=== PATIENT | male | born 1995 | race Caucasian/White ===

== ENCOUNTER 2022-03-06 11:29 | Emergency (ER) | payer SELFPAY ==
[2022-03-06 11:34] VITALS: BP 158/101; PULSE 93; RESP 18; TEMP 36.6; O2SAT 98
--- NOTE | 2022-03-06 11:34 | ED.EYEPROB ---
HPI - Eye Problem General Chief complaint: Eye Problems Stated complaint: eyes Time Seen by Provider: 03/06/22 11:40 Source: patient and RN notes reviewed Mode of arrival: ambulatory Limitations: no limitations History of Present Illness HPI Narrative: 26 year old male presents with concern for eye redness, dryness. Reports he has been rubbing his eyes until they are very red. He reports he had a coughing fit and then had bloody drainage from his eyes. He reports pressure behind his eyes. He reports decreased vision in the left eye. He denies any direct trauma MD chief complaint: eye redness Related Data Allergies Allergy/AdvReac Type Severity Reaction Status Date / Time No Known Allergies Allergy Verified 03/06/22 11:40 Review of Systems Review of Systems: CONSTITUTIONAL: Denies malaise, chills, sweats, or fever. EYES: Reports left visual changes. Reports redness, irritation, bloody discharge bilaterally. ENT: Reports rhinorrhea, congestion. Sinus pain, otalgia or sore throat. SKIN: Denies rash or itching. NEUROLOGIC: Denies numbness, weakness, or headache. PSYCHIATRIC: Denies anxiety or depression. All systems reviewed & are unremarkable except as noted in HPI and below PMFSH Comments At time of signature, agree with nursing past medical, surgical, social and family history. There is no relevant family history pertinent to the presenting complaint Exam Narrative: GENERAL: Well-appearing, well-nourished, and in no acute distress. HEAD: Normocephalic, atraumatic. EYES: PERRLA, EOMI. No nystagmus. Bilateral conjunctivae and sclerae injected, subconjunctival hemorrhage noted, gross blood noted in the conjunctivae. Upper and lower eyelids mildly edematous, no periorbital edema noted ENT: Nares clear, turbinates pink, no rhinorrhea or epistaxis. Mucous membranes moist. TM pearly chow with sharp light reflex bilaterally; no tragal tenderness. NECK: Supple. CHEST: No respiratory distress. Speaks in full sentences. HEART: Regular rate and rhythm. SKIN: Warm, dry, no visible rash. NEURO: Alert and oriented x3. PSYCH: Normal mood and affect Course Course Emergency Course: Connected patient with Ophthalmology, patient is unwilling to go to supply teacher due to a payment reasons, he does not have insurance is unable to pay their rate. Advised transfer to emergency department for further evaluation, patient does not want to go to the emergency department. Reports he has a friend who works at [employer] and he will follow up there. Portions of this record may have been created with voice recognition software Level of Care: Express Care Visit Vital Signs Vital signs: Reviewed. MDM - Eye Problem MDM Narrative Medical decision making narrative: Exam findings warrant further evaluation; patient is non-toxic appearing and is in no distress. Differential Diagnosis Differential diagnosis: Likely corneal abrasion, conjunctivitis, acute iritis, periorbital cellulitis, subconjunctival hemorrhage and other (Retinal detachment) Critical Care Time Critical Care Time Critical Care Time: No Discharge Plan Discharge Clinical Impression: Subconjunctival hemorrhage, Conjunctivitis Patient Disposition: Home, Self-Care Condition: Stable Instructions: Subconjunctival Hemorrhage (ED), Conjunctivitis (ED) Additional Instructions: Follow-up with ophthalmology as soon as possible, if you can not do that you need to go to the emergency room. Do not touch or rub your eye. Use a cold washcloth on your eye for comfort Use eyedrops as directed Practice good handwashing You may take Tylenol or ibuprofen for pain Go to the emergency room if you have pain behind your eye, pressure behind her eye, difficulty seeing, or other severe symptoms Prescriptions: New neomycin-polymyxin B-dexameth 3.5mg/mL-10,000 unit/mL-0.1 % drops,suspension 1 drp EACH EYE Q6H 7 Days Qty: 5 0RF Follow-up/Referrals: PHYSICIAN,[facility]
== END 2022-03-06 12:15 | disposition home or self-care (01) ==
PROVIDERS: Emergency Provider Nurse Practitioner
DX: H11.33 Conjunctival hemorrhage, bilateral (principal); H10.9 Unspecified conjunctivitis
CPT/HCPCS: 99213; G0463